=== PATIENT | female | born 2000 | race Caucasian/White ===

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

== ENCOUNTER 2020-02-11 10:26 | Emergency (ER) | payer OTHER ==
[~2020-02-11] VITALS: Ht 165.1 cm; Wt 90.3 kg
[2020-02-11 10:32] VITALS: Ht 165.1 cm; Wt 90.3 kg
[2020-02-11 11:18] LABS: UA SPECIFIC GRAVITY <=1.005 (1.005-1.035); microscopic required? YES; urine erythrocyte TRACE (NEGATIVE)
[2020-02-11 11:29] LABS: BASOPHIL % 0.1 % (0-2); PLATELET COUNT 158 x10^3mcL (130-400)
[2020-02-11 11:31] LABS: ALBUMIN 3.6 g/dL (3.4-5.0); ALKALINE PHOSPHATASE 58 U/L (46-116); ALT/SGPT 28 U/L (14-59); AST/SGOT 18 U/L (15-37); BILIRUBIN TOTAL 0.2 mg/dL (0.20-1.00); CALCIUM 8.9 mg/dL (8.5-10.1); CARBON DIOXIDE 24.3 mmol/L (21-32); CHLORIDE SERUM 103 mmol/L (98-107); CREATININE SERUM 0.6 mg/dL (0.6-1.0); GFR1 > 60 mL/min; GLUCOSE SERUM 96 mg/dL (74-106); LIPASE 149 IU/L (73-393); POTASSIUM SERUM 3.2 mmol/L (3.5-5.1); SODIUM SERUM 139 mmol/L (136-145); TOTAL PROTEIN, SERUM 7.4 g/dL (6.4-8.2)
[2020-02-11 12:31] VITALS: BP 118/61
== END 2020-02-11 12:31 | disposition home or self-care (01) ==
LOC: ED 10:26
PROVIDERS: Emergency Medicine
DX: B34.9 Viral infection, unspecified (principal); R10.815 Periumbilic abdominal tenderness; R19.7 Diarrhea, unspecified; Z20.828 Contact with and (suspected) exposure to other viral communicable diseases
CPT/HCPCS: 36415; Q0092